=== PATIENT | male | born 1980 | race Hispanic/Latino ===

== ENCOUNTER 2018-05-18 09:44 | Emergency (ER) | payer OTHER ==
[~2018-05-18] VITALS: Ht 172.7 cm; Wt 86.2 kg
[2018-05-18] MEDS ORDERED: NICARDIPINE HCL SOLN 20 MG in SODIUM CHLORIDE 0.9% 250ML 200 ML IV STA (09:47)
[2018-05-18 10:33] LABS: BASOPHILS % 0.3 % (0.0-1.0); EOSINOPHILS # (AUTO) 0.4 (0.0-0.4); EOSINOPHILS % 4.3 % (0.0-6.0); HEMOGLOBIN 15.7 g/dL (14.0-18.0); LYMPHOCYTES # (AUTO) 3.3 (1.0-3.2); LYMPHOCYTES % 38.6 % (18.0-39.1); MEAN CORPUSCULAR HEMOGLOBIN 30.3 pg (28-32); MEAN CORPUSCULAR HGB CONC 34.1 g/dL (31-35); MEAN CORPUSCULAR VOLUME 88.6 fL (81-99); MONOCYTES # (AUTO) 0.7 (0.2-0.8); MONOCYTES % 7.6 % (4.4-11.3); NEUTROPHILS # (AUTO) 4.2 (2.1-6.9); PLATELET COUNT 184 x10e3/uL (140-360); RED BLOOD COUNT 5.19 x10e6/uL (4.3-5.7); RED CELL DISTRIBUTION WIDTH 13.3 % (11.7-14.4)
[2018-05-18 10:37] LABS: INR 1.03; PROTHROMBIN TIME 12.7 seconds (11.9-14.5)
--- NOTE | 2018-05-18 10:37 | Diagnostic Imaging Report ---
Examination: CT BRAIN WITHOUT CONTRAST History:Right-sided weakness. Hypertensive emergency. Comparison studies:None Technique: Axial images were obtained from the skull base to the vertex. Coronal and sagittal images reconstructed from the axial data. Intravenous contrast: None Findings: Scalp: No abnormalities. Bones: No fractures, blastic or lytic lesions. Brain sulci: Appropriate for age. Ventricles: Intraventricular hemorrhage, as detailed below. No hydrocephalus. Extra-axial space: No abnormalities. Parenchyma: There is a 2.3 x 1.9 x 1.8 cm (superoinferior x anteroposterior x transverse dimensions) hemorrhage in the left lentiform nucleus with subependymal rupture through the atrium of the left lateral ventricle and extension of the hemorrhage through the left lateral ventricle, foramen of [place]aranjo, third ventricle, cerebral aqueduct and fourth ventricle. No masses, or acute or chronic cortical based vascular insults.. Sellar/suprasellar region: No abnormalities. Craniocervical junction: Patent foramen magnum. No Chiari one malformation. Incidental findings: None. 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 Emergent neurosurgical consultation is recommended. Dr. Chantal Morgan discussed findings and recommendations with Dr. Nataliia Taylor on 05/18/2018 at 1032 hours. Signed by: Dr. Chantal Morgan M.D. on 05/18/2018 10:34 AM
[2018-05-18 10:38] LABS: PARTIAL THROMBOPLASTIN TIME 29.7 seconds (23.8-35.5)
[2018-05-18 10:46] LABS: ALBUMIN 3.8 g/dL (3.5-5.0); ANION GAP 12.4 mmol/L (8-16); CREATININE, SERUM 1.41 mg/dL (0.72-1.25); POTASSIUM 3.4 mmol/L (3.5-5.1)
== END 2018-05-18 10:57 | disposition other institution (70) ==
LOC: ER 09:44
DX: R53.1 Weakness (principal); R51 Headache; I61.9 Nontraumatic intracerebral hemorrhage, unspecified; R26.2 Difficulty in walking, not elsewhere classified
CPT/HCPCS: 36415; 70450; 80053; 85025; 85610; 85730; 86850; 86900; 99284; J7050